=== PATIENT | female | born 1965 | race Hispanic/Latino ===

== ENCOUNTER 2017-04-11 19:29 | Emergency (ER) | payer SELFPAY ==
[2017-04-11] MEDS ORDERED: IPRATROPIUM/ALBUTEROL 3 ML VIAL NEB ONE ×2 (19:35→20:09)
[2017-04-11 19:54] VITALS: BP 172/95; TEMP 98.6
[2017-04-11] MEDS ORDERED: methylPREDNISolone SODIUM SUC 125 MG/2 ML VIAL IM ONE (20:09)
--- NOTE | 2017-04-11 20:12 | ED.PDOC ---
History of Present Illness - General Chief Complaint: Respiratory Problem Time Seen by Provider: 04/11/17 19:38 Source: patient, family Exam Limitations: no limitations - History of Present Illness Initial Comments: NO PMH AND NO CHRONIC MEDS. NON SMOKER. SOB LAST NIGHT, WORSE TONIGHT. HAD SIMILAR 10 YRS AGO TRIGGERED BY ALLERGIES. HAS MILD SEASONAL ALLERGIES. Severity: severe Activities at Onset: none Possible Cause: allergen exposure Improving Factors: nothing Worsening Factors: nothing Associated Symptoms: denies symptoms Respiratory Risk Factors: exposure to allergen Home Medications: Ambulatory Orders Albuterol Sulfate [Proair Hfa] 2 puff INH Q6H PRN #1 inhaler 04/11/17 Methylprednisolone [Medrol Dose Alden] 4 mg PO DAILY #1 tab 04/11/17 Review of Systems - Review of Systems Constitutional: States: no symptoms reported EENTM: States: no symptoms reported Respiratory: States: short of breath, wheezing. Denies: cough Cardiology: States: no symptoms reported Gastrointestinal/Abdominal: States: no symptoms reported Genitourinary: States: no symptoms reported Musculoskeletal: States: no symptoms reported Skin: States: no symptoms reported Neurological: States: no symptoms reported Endocrine: States: no symptoms reported Hematologic/Lymphatic: States: no symptoms reported All other Systems: Reviewed and Negative Past Medical History (General) - Patient Medical History Hx Asthma: No - Social History Hx Alcohol Use: No Family Medical History - Family History Mother Family History: Unknown Physical Exam - Physical Exam General Appearance: Alert, Obvious distress Eyes, Ears, Nose, Throat Exam: PERRL/EOMI, normal ENT inspection, TMs normal, pharynx normal Neck: non-tender, full range of motion, supple Respiratory: respiratory distress, wheezing, expiration, inspiration Cardiovascular/Chest: normal peripheral pulses, no edema, no gallop, no JVD, no murmur, other - TACHYCARDIC BUT REGULAR S1S2. Peripheral Pulses: radial,right: 2+, radial,left: 2+ Gastrointestinal/Abdominal: normal bowel sounds, non tender, soft Extremity: non-tender, normal inspection Neurologic: alert, oriented x 3 Skin Exam: normal color, warm/dry Lymphatic: no adenopathy Progress - Results/Orders Results/Orders: RE-EXAMINATINO SHOWS WHEEZES AND DYSPNEA COMPLETELY RESOLVED AFTER 1 DUONEB. CXR NEG. NO ABX NEEDED SINCE IT WAS POLLEN-INDUCED AND SHE HAS NO COPD (NON- SMOKER, NO COMORBIDITIES, IS VERY HEALTHY). DC TO HOME WITH ALBUTEROL INHALER AND MEDROL DOSE PACK. Departure - Departure Clinical Impression: Acute bronchospasm, Dyspnea, Wheezing Disposition: Discharge to Home or Self Care Condition: Excellent Departure Forms: ED Discharge - Pt. Copy, Patient Portal Self Enrollment Instructions: DI for Shortness of Breath Diet: resume usual diet Activity: increase activity as tolerated Referrals: Max William MD [Primary Care Provider] - 1-2 Weeks Prescriptions: Albuterol Sulfate [Proair Hfa] 2 puff INH Q6H PRN #1 inhaler PRN Reason: Shortness Of Breath/Wheezing Methylprednisolone [Medrol Dose Alden] 4 mg PO DAILY #1 tab Home Medications: Ambulatory Orders Albuterol Sulfate [Proair Hfa] 2 puff INH Q6H PRN #1 inhaler 04/11/17 Methylprednisolone [Medrol Dose Alden] 4 mg PO DAILY #1 tab 04/11/17
--- NOTE | 2017-04-11 20:37 | RAD ---
Examination: XR CHEST 1 VIEW dated 04/11/2017 8:08 PM CDT History: DYSPNEA Comparison: None Technique: Frontal view of the chest Findings: The lungs are clear bilaterally. No pneumothorax or pleural effusion. The cardiomediastinal silhouette is within normal limits. Impression: No acute disease. Electronically signed by: Piter Salas MD 04/11/2017 8:36 PM CDT
[2017-04-11 21:12] VITALS: O2SAT 97
== END 2017-04-11 21:11 | disposition home or self-care (01) ==
LOC: ER 19:29
DX: J98.01 Acute bronchospasm (principal)
CPT/HCPCS: 71010; 94640; 94760; J2930; J7620

== ENCOUNTER 2018-12-21 11:15 | Emergency (ER) | payer OTHER ==
[2018-12-21] MEDS ORDERED: KETOROLAC TROMETHAMINE INJ 30 MG/ML VIAL IM ONE (11:36)
--- NOTE | 2018-12-21 11:42 | ED.PDOC ---
History of Present Illness - General Chief Complaint: Abdominal Pain Stated Complaint: RUQ abdominal burning Time Seen by Provider: 12/21/18 11:36 Information Source: patient Exam Limitations: no limitations - History of Present Illness Initial Comments: patient comes in today with onset this morning about 4 hours ago of right sided severe burning pain. Patient states it's now down to a 5 out of 10 and was associated with some nausea. Patient was concerned because she's been experiencing these episodes approximately one time a year for the past 10 years. 9 years ago she was also having some dysfunctional uterine bleeding and had a hysterectomy. At that time she had CAT scans and ultrasounds performed and they were normal. However, the pain has persisted. Patient has no known triggers including activity, diet, stress, or sexual activity. Patient has had a normal bowel movement this morning and is not normally prone to constipation. She denies any reflux, hematuria, dysuria. She does still have her ovaries although they did take out her uterus. That is the only surgery that she's ever had. She takes no medications and she has not tried anything at home for the pain. Patient states the pain this time was worse and she remembered being in the past. She has no past medical history. Abdominal Pain Onset Location: RUQ, RLQ Pain Radiation: no radiation Quality: severe, burning Timing/Duration: 4-6 hours Improving Factors: nothing Worsening Factors: nothing Associated Symptoms: nausea/vomiting Review of Systems - Review of Systems Constitutional: States: no symptoms reported. Denies: chills, fever EENTM: States: no symptoms reported. Denies: eye pain, ear pain, nose pain Respiratory: States: no symptoms reported. Denies: cough, short of breath Cardiology: States: no symptoms reported. Denies: chest pain, palpitations Gastrointestinal/Abdominal: States: abdominal pain, nausea. Denies: constipation, diarrhea, vomiting Genitourinary: States: no symptoms reported Musculoskeletal: States: no symptoms reported Skin: States: no symptoms reported Neurological: States: no symptoms reported Past Medical History (General) - Patient Medical History Hx Seizures: No Hx Asthma: No Hx Cardiac Disorders: No Hx Diabetes: No Surgical History: other - Social History Hx Tobacco Use: No Hx Alcohol Use: No Family Medical History - Family History Mother Family History: Unknown Physical Exam - Physical Exam General Appearance: Alert, Anxious, Comfortable Eyes, Ears, Nose, Throat Exam: PERRL/EOMI, normal ENT inspection, TMs normal, pharynx normal Neck: non-tender, full range of motion, supple, normal inspection Respiratory: chest non-tender, lungs clear, normal breath sounds, no respiratory distress Cardiovascular/Chest: normal peripheral pulses, regular rate, rhythm, no edema, no gallop, no JVD, no murmur Peripheral Pulses: No deficit Gastrointestinal/Abdominal: soft, abnormal bowel sounds - hypoactive BS, tenderness - to palpation without rebound, mass, or guarding in the RUQ and RLQ no distention Rectal Exam: normal exam, normal rectal tone Back Exam: normal inspection, no CVA tenderness Extremity: normal inspection Neurologic: alert, oriented x 3 Progress - Progress Progress: 12/21/18 12:39 patient feeling better after toradol. rectal exam is normal but discussed with patient results of CT and suggested that next step is to see GI for evaluation and probable colonoscopy. Patient is to call her insurance to see if referral is needed and who is listed as her PCP. Then she can either contact here PCP if referral is needed or call GI for appointment for abnormal CT results with thickened rectal wall and recurrent chronic abdominal pain. - Results/Orders Results/Orders: Patient Name: BIJAN DIAZ Gender: Female Date of : 1965 Referring Physician: EMMY NORIEGA Organization: [facility] Accession Number: [id number] Requested Date: December 21, 2018 11:36 Report Status: Final Requested Procedure: 1 Procedure Description: Abdoment/Pelvis w/o Contrast Modality: CT Findings Reporting MD: Evin Julien Fellow MD: Not available Dictation Time: Guidance Adviser: Not available Photographic Equipment Technician Date: Study: CT abdomen and pelvis. Indication: pain RUQ and RLQ Technique: CT of the abdomen and pelvis obtained without intravenous contrast. This exam was performed according to our departmental dose-optimization program, which includes automated exposure control, adjustment of the mA and/or kV according to patient size and/or use of iterative reconstruction technique. Comparison: None. Findings: Lower chest, liver, gallbladder, pancreas, spleen, adrenal glands, kidneys, and bladder demonstrate normal unenhanced CT appearance. Uterus and ovaries are surgically absent or small. Mild circumferential rectal wall thickening and inflammation noted extending to the junction of the sigmoid colon. Stomach, small bowel, and appendix unremarkable. No free fluid. No free air. No pathologically enlarged lymphadenopathy. Degenerative changes of the spine noted. Impression: Mild rectal wall thickening and inflammation which can be seen with proctitis. Malignancy not excluded. Follow-up colonoscopy recommended if not recently performed. Patient Name: BIJAN DIAZ Gender: Female Date of : 1965 Referring Physician: EMMY NORIEGA Organization: [facility] Accession Number: [id number] Requested Date: December 21, 2018 11:36 Report Status: Final Requested Procedure: 1 Procedure Description: Abdoment/Pelvis w/o Contrast Modality: CT Findings Reporting MD: Evin Julien Fellow MD: Not available Dictation Time: Guidance Adviser: Not available Photographic Equipment Technician Date: Study: CT abdomen and pelvis. Indication: pain RUQ and RLQ Technique: CT of the abdomen and pelvis obtained without intravenous contrast. This exam was performed according to our departmental dose-optimization program, which includes automated exposure control, adjustment of the mA and/or kV according to patient size and/or use of iterative reconstruction technique. Comparison: None. Findings: Lower chest, liver, gallbladder, pancreas, spleen, adrenal glands, kidneys, and bladder demonstrate normal unenhanced CT appearance. Uterus and ovaries are surgically absent or small. Mild circumferential rectal wall thickening and inflammation noted extending to the junction of the sigmoid colon. Stomach, small bowel, and appendix unremarkable. No free fluid. No free air. No pathologically enlarged lymphadenopathy. Degenerative changes of the spine noted. Impression: Mild rectal wall thickening and inflammation which can be seen with proctitis. Malignancy not excluded. Follow-up colonoscopy recommended if not recently performed. Departure - Departure Clinical Impression: thickened rectal wall Abdominal pain Qualifiers: Abdominal location: right lower quadrant Qualified Code(s): R10.31 - Right lower quadrant pain Disposition: Discharge to Home or Self Care Condition: Good Departure Forms: ED Discharge - Pt. Copy, Patient Portal Self Enrollment Instructions: DI for Abdominal Pain-Adult Home Medications: Ambulatory Orders NK 12/21/18 Additional Instructions: next step is to see GI for evaluation and probable colonoscopy. Patient is to call her insurance to see if referral is needed and who is listed as her PCP. Then she can either contact here PCP if referral is needed or call GI for appointment for abnormal CT results with thickened rectal wall and recurrent chronic abdominal pain. Return to ER for return of pain, fever >100.5, intractable emesis.
--- NOTE | 2018-12-21 12:09 | CT ---
Study: CT abdomen and pelvis. Indication: pain RUQ and RLQ Technique: CT of the abdomen and pelvis obtained without intravenous contrast. This exam was performed according to our departmental dose-optimization program, which includes automated exposure control, adjustment of the mA and/or kV according to patient size and/or use of iterative reconstruction technique. Comparison: None. Findings: Lower chest, liver, gallbladder, pancreas, spleen, adrenal glands, kidneys, and bladder demonstrate normal unenhanced CT appearance. Uterus and ovaries are surgically absent or small. Mild circumferential rectal wall thickening and inflammation noted extending to the junction of the sigmoid colon. Stomach, small bowel, and appendix unremarkable. No free fluid. No free air. No pathologically enlarged lymphadenopathy. Degenerative changes of the spine noted. Impression: Mild rectal wall thickening and inflammation which can be seen with proctitis. Malignancy not excluded. Follow-up colonoscopy recommended if not recently performed. Electronically signed by: Evin Julien MD 12/21/2018 12:06 PM CDT
[2018-12-21 12:44] VITALS: O2SAT 98
[2018-12-21 13:26] VITALS: BP 121/95; TEMP 98.8
== END 2018-12-21 13:26 | disposition home or self-care (01) ==
LOC: ER 11:15
DX: R10.31 Right lower quadrant pain (principal); K62.9 Disease of anus and rectum, unspecified; R11.2 Nausea with vomiting, unspecified; Z90.79 Acquired absence of other genital organ(s)
CPT/HCPCS: 36415; 74176; 80053; 81001; 82270; 85025; J1885

== ENCOUNTER 2019-02-26 00:49 | Emergency (ER) | payer OTHER ==
[2019-02-26 01:03] VITALS: BP 184/94; TEMP 98.5; O2SAT 100
--- NOTE | 2019-02-26 01:13 | ED.PDOC ---
History of Present Illness - General Chief Complaint: Abdominal Pain Stated Complaint: right side abdomen pain Time Seen by Provider: 02/26/19 00:57 Information Source: patient Exam Limitations: no limitations - History of Present Illness Initial Comments: Marlee Swain 54y/o female came to ER with dull RLQ pain radiating to RUQ for the last 11 years.she stated had it once a year but stated getting more frequent almost every month .She was last seen in December [address] abd/P - showing thickened rectal wall-possible proctitis.She was advised by ER-M[facility] at that time to follow up with her primary Md for follow up with specialist-GI and automobile damage appraiser but did not comply.Denies blood in stool,,feels nauseated because of pain,no hematuria or dysuria,no loss of weight or loss of appetite. Review of Systems - Review of Systems Gastrointestinal/Abdominal: States: see HPI, abdominal pain All other Systems: Reviewed and Negative, No Change from Baseline Past Medical History (General) - Patient Medical History Hx Seizures: No Hx Stroke: No Hx Dementia: No Hx Asthma: No Hx of COPD: No Hx Cardiac Disorders: No Hx Congestive Heart Failure: No Hx Pacemaker: No Hx Hypertension: No Hx Thyroid Disease: No Hx Diabetes: No Hx Gastroesophageal Reflux: No Hx Renal Disease: No Hx Cancer: No Hx of HIV: No Hx Hepatitis C: No Hx MRSA: No Surgical History: other - hysterectomy - Vaccination History Hx Tetanus, Diphtheria Vaccination: No Hx Influenza Vaccination: No - Social History Hx Tobacco Use: No Hx Alcohol Use: Yes Family Medical History - Family History Mother Family History: Unknown Hx Family Diabetes: Yes - siblings and mom Hx Family Cancer: Yes - dad-pancreas Physical Exam - Physical Exam General Appearance: Alert, Comfortable Eyes, Ears, Nose, Throat Exam: normal ENT inspection Neck: normal inspection Respiratory: chest non-tender, lungs clear, normal breath sounds Cardiovascular/Chest: normal peripheral pulses, regular rate, rhythm, no murmur Peripheral Pulses: No deficit Gastrointestinal/Abdominal: soft, tenderness - RLQ,no peritoneal signs Back Exam: no CVA tenderness, no vertebral tenderness Extremity: no pedal edema, no calf tenderness Neurologic: alert, oriented x 3 Progress - Progress Progress: 02/26/19 01:15 Vital Signs - 8 hr 02/26/19 00:55 Temperature 98.5 F Pulse Rate [ 88 monitor] Respiratory 20 Rate Blood Pressure 184/94 [Left Arm] O2 Sat by Pulse 100 Oximetry 02/26/19 01:18 Patient LEFT AMA I WAS TO ORDER LAB TEST AND PAIN MEDICATION ON HER;I TOLD HER ABOUT IMPORTANCE OF FOLLOW UP WITH HER PRIMARY MD BUT SHE SEEMS DOES NOT WANT THE ADVISED Departure - Departure Clinical Impression: Abdominal pain Qualifiers: Abdominal location: right lower quadrant Qualified Code(s): R10.31 - Right lower quadrant pain Time of Disposition: 01:21 Disposition: Left Against Medical Advice Condition: Fair Departure Forms: ED Discharge - Pt. Copy, Patient Portal Self Enrollment Referrals: UNKNOWN,PHYSICIAN [Primary Care Provider] - 1-2 Weeks Home Medications: Ambulatory Orders NK 12/21/18
== END 2019-02-26 01:16 | disposition left against medical advice (07) ==
LOC: ER 00:49
DX: R10.31 Right lower quadrant pain (principal); R11.0 Nausea; Z53.29 Procedure and treatment not carried out because of patient's decision for other reasons; Z90.710 Acquired absence of both cervix and uterus

== ENCOUNTER 2019-04-17 04:36 | Emergency (ER) | payer OTHER ==
[2019-04-17] MEDS ORDERED: KETOROLAC TROMETHAMINE INJ 30 MG/ML VIAL ONE (05:40)
[2019-04-17] MEDS ORDERED: KETOROLAC TROMETHAMINE INJ 30 MG/ML VIAL IV ONE (05:41)
[2019-04-17] MEDS ORDERED: ONDANSETRON INJ 4 MG/2 ML VIAL IV ONE (05:45)
--- NOTE | 2019-04-17 05:48 | ED.PDOC ---
History of Present Illness - General Chief Complaint: Abdominal Pain Stated Complaint: right side abdominal pain Time Seen by Provider: 04/17/19 05:33 Information Source: patient, RN notes reviewed, Vital Signs reviewed, family Exam Limitations: no limitations - History of Present Illness Abdominal Pain Onset Location: RUQ, RLQ Pain Radiation: no radiation Quality: severe, sharpness Timing/Duration: other - Occurring intermittently for past 3 months. Started this AM at 0200. Worsening Factors: nothing Associated Symptoms: denies symptoms Review of Systems - Review of Systems Constitutional: States: no symptoms reported EENTM: States: no symptoms reported Respiratory: States: no symptoms reported Cardiology: States: no symptoms reported Gastrointestinal/Abdominal: States: abdominal pain, vomiting. Denies: diarrhea Genitourinary: States: no symptoms reported Musculoskeletal: States: no symptoms reported Skin: States: no symptoms reported Neurological: States: no symptoms reported Endocrine: States: no symptoms reported Hematologic/Lymphatic: States: no symptoms reported Past Medical History (General) - Patient Medical History Hx Seizures: No Hx Stroke: No Hx Dementia: No Hx Asthma: No Hx of COPD: No Hx Cardiac Disorders: No Hx Congestive Heart Failure: No Hx Pacemaker: No Hx Hypertension: No Hx Thyroid Disease: No Hx Diabetes: No Hx Gastroesophageal Reflux: No Hx Renal Disease: No Hx Cancer: No Hx of HIV: No Hx Hepatitis C: No Hx MRSA: No Surgical History: Hysterectomy - Vaccination History Hx Tetanus, Diphtheria Vaccination: No Hx Influenza Vaccination: No - Social History Hx Tobacco Use: No Hx Alcohol Use: Yes - Female History Patient is a Female of Child Bearing Age (10 -59 yrs old): No - Triage Comment ED Triage Comment: States pain to right side of abdomen. Has similar pain for "ten years, once a year". Family Medical History - Family History Mother Family History: Unknown Hx Family Diabetes: Yes - siblings and mom Hx Family Cancer: Yes - dad-pancreas Physical Exam - Physical Exam General Appearance: Alert, Obvious distress Eyes, Ears, Nose, Throat Exam: normal ENT inspection Neck: non-tender, full range of motion Respiratory: chest non-tender, lungs clear, normal breath sounds Cardiovascular/Chest: normal peripheral pulses, regular rate, rhythm Gastrointestinal/Abdominal: normal bowel sounds, soft, other - Minimally tender to RUQ and RLQ. Not distended, no rebound tenderness. Back Exam: normal inspection Extremity: normal range of motion, non-tender Neurologic: lining closer II-XII nml as tested, no motor/sensory deficits, alert Skin Exam: normal color Lymphatic: no adenopathy Progress - Progress Progress: 04/17/19 05:49 We reviewed her labs, unremarkable. She's complaining of 10/10 pain so IV toradol and zofran are given and CT A/P ordered. 04/17/19 07:12 On reasssessment patient's pain resolved. We reviewed her CT which shows questionable dilation of appendix and gallbladder. She was advised to return if her pain was severe, vomiting, fever, can't ambulate because of pain. She understands. - Results/Orders Results/Orders: EXAM: CT Abdomen and Pelvis With Intravenous Contrast CLINICAL HISTORY: Rt abd pain TECHNIQUE: Axial computed tomography images of the abdomen and pelvis with intravenous contrast. Sagittal and coronal reformatted images were created and reviewed. This CT exam was performed using one or more of the following dose reduction techniques: automated exposure control, adjustment of the mA and/or kV according to patient size, and/or use of iterative reconstruction technique. COMPARISON: No relevant prior studies available. FINDINGS: Limitations: None. Lung bases: Unremarkable. No mass. No consolidation. ABDOMEN: Liver: Unremarkable. No mass. Gallbladder and bile ducts: Mild distention of the gallbladder unchanged. No calcified stones noted. No ductal dilation. Pancreas: Unremarkable. No mass. No ductal dilation. Spleen: Unremarkable. No splenomegaly. Adrenals: Unremarkable. No mass. Kidneys and ureters: Unremarkable. No solid mass. No hydronephrosis. Stomach and bowel: Moderate colonic stool present no obstruction. Rectal thickening no longer identified. PELVIS: Appendix: The appendix appears slightly dilated and thickened in the measuring 7 mm. Bladder: Unremarkable. No mass. Reproductive: Unremarkable as visualized. ABDOMEN and PELVIS: Intraperitoneal space: Unremarkable. No free air. No significant fluid collection. Bones/joints: No acute fracture. No dislocation. Soft tissues: Small umbilical hernia noted containing fat. Vasculature: Unremarkable. No abdominal aortic aneurysm. Lymph nodes: Unremarkable. No enlarged lymph nodes. IMPRESSION: 1. Cannot exclude mild/early appendicitis. 2. The gallbladder remains slightly distended. Consider sonography to assess for cholecystitis. 3. Proctitis resolved. Electronically signed by: Blanca Palacio MD 04/17/2019 6:53 AM CDT Departure - Departure Clinical Impression: Abdominal pain Time of Disposition: 07:04 Disposition: Discharge to Home or Self Care Condition: Excellent Departure Forms: ED Discharge - Pt. Copy, Patient Portal Self Enrollment Instructions: DI for Abdominal Pain-Adult Diet: resume usual diet Activity: increase activity as tolerated Referrals: Kwesi Paul MD [Primary Care Provider] - 1-2 Days Home Medications: Ambulatory Orders NK 12/21/18
--- NOTE | 2019-04-17 06:54 | CT ---
EXAM: CT Abdomen and Pelvis With Intravenous Contrast CLINICAL HISTORY: Rt abd pain TECHNIQUE: Axial computed tomography images of the abdomen and pelvis with intravenous contrast. Sagittal and coronal reformatted images were created and reviewed. This CT exam was performed using one or more of the following dose reduction techniques: automated exposure control, adjustment of the mA and/or kV according to patient size, and/or use of iterative reconstruction technique. COMPARISON: No relevant prior studies available. FINDINGS: Limitations: None. Lung bases: Unremarkable. No mass. No consolidation. ABDOMEN: Liver: Unremarkable. No mass. Gallbladder and bile ducts: Mild distention of the gallbladder unchanged. No calcified stones noted. No ductal dilation. Pancreas: Unremarkable. No mass. No ductal dilation. Spleen: Unremarkable. No splenomegaly. Adrenals: Unremarkable. No mass. Kidneys and ureters: Unremarkable. No solid mass. No hydronephrosis. Stomach and bowel: Moderate colonic stool present no obstruction. Rectal thickening no longer identified. PELVIS: Appendix: The appendix appears slightly dilated and thickened in the measuring 7 mm. Bladder: Unremarkable. No mass. Reproductive: Unremarkable as visualized. ABDOMEN and PELVIS: Intraperitoneal space: Unremarkable. No free air. No significant fluid collection. Bones/joints: No acute fracture. No dislocation. Soft tissues: Small umbilical hernia noted containing fat. Vasculature: Unremarkable. No abdominal aortic aneurysm. Lymph nodes: Unremarkable. No enlarged lymph nodes. IMPRESSION: 1. Cannot exclude mild/early appendicitis. 2. The gallbladder remains slightly distended. Consider sonography to assess for cholecystitis. 3. Proctitis resolved. Electronically signed by: Blanca Palacio MD 04/17/2019 6:53 AM CDT
[2019-04-17 07:29] VITALS: BP 139/83; TEMP 98; O2SAT 97
== END 2019-04-17 07:15 | disposition home or self-care (01) ==
LOC: ER 04:36
DX: R10.11 Right upper quadrant pain (principal); R10.31 Right lower quadrant pain; R11.10 Vomiting, unspecified; Z90.710 Acquired absence of both cervix and uterus
CPT/HCPCS: 74177; 80053; 85025; J1885; J2405